=== PATIENT | female | born 1970 | race Caucasian/White ===

== ENCOUNTER → 2016-05-26 | Outpatient (CLI) | payer BC ==
[2016-05-28 17:47] LABS: ANTINUCLEAR ANTIBODY <0.1 U (())
[2016-05-28 17:51] LABS: CYCLIC CITRULLINATED PEPTIDEAB <15.6 U (())
== END ==
LOC: LAB 14:05
PROVIDERS: ATTEND Student in an Organized Health Care Education/Training Program
DX: M19.042 Primary osteoarthritis, left hand (principal); M19.041 Primary osteoarthritis, right hand
CPT/HCPCS: 36415; 84550; 85652; 86038; 86200; 86431

== ENCOUNTER → 2016-05-27 | Outpatient (CLI) | payer BC ==
[2016-05-27 10:31] LABS: BASOPHILS # (AUTO) 0.03 10*3/UL; BASOPHILS % (AUTO) 0.4 % (0-1); EOSINOPHILS % (AUTO) 1.4 % (0-8); HEMATOCRIT 36.7 % (37.0-47.0); HEMOGLOBIN 11.9 g/dL (12.0-16.0); IMM GRAN % (AUTO) 0 % (0-5); IMM GRAN# (AUTO) 0 10*3/UL; LYMPHOCYTES # (AUTO) 1.58 10*3/uL; LYMPHOCYTES % (AUTO) 21.7 % (10-50); MEAN CORPUSCULAR HEMOGLOBIN 28.2 PG (27-31); MEAN CORPUSCULAR HGB CONC 32.4 g/dL (33-37); MEAN PLATELET VOLUME 9.3 FL (7.4-12.2); MONOCYTES # (AUTO) 0.27 10*3/UL (0.3-0.8); MONOCYTES % (AUTO) 3.7 % (5-15); NEUTROPHILS # (AUTO) 5.31 10*3/UL; NEUTROPHILS % (AUTO) 72.8 % (50-80); RDW COEFFICIENT OF VARIATION 16.3 % (11.5-14.5); RED BLOOD COUNT 4.22 10^6/uL (4.20-5.40); WHITE BLOOD COUNT 7.29 10^3/uL (4.8-10.8)
[2016-05-27 10:43] LABS: PLATELET MORPHOLOGY COMMENT NORMAL MORPHOLOGY (NORM)
[2016-05-27 10:45] LABS: ASPARTATE AMINO TRANSFERASE 20 IU/L (8-39); BILIRUBIN,TOTAL 0.4 mg/dL (0.3-1.2); BLOOD UREA NITROGEN 7 mg/dL (7-22); CALCIUM 8.8 mg/dL (8.7-10.7); CHLORIDE 105 meq/L (98-112); CREATININE 0.7 mg/dL (0.50-1.20); EST GLOMERULAR FILTRATION > 60 (>60 ml/min/1.73m(2)); GLUCOSE 79 mg/dL (78-110); POTASSIUM 3.9 meq/L (3.8-5.2); SODIUM 139 meq/L (135-145); TOTAL PROTEIN 6.5 g/dL (6.1-8.0)
[2016-05-27 10:51] LABS: PROTHROMBIN TIME 10.1 secs (9.7-11.4)
== END ==
LOC: MOB LAB 10:00
PROVIDERS: ATTEND Physician Assistant
DX: N93.9 Abnormal uterine and vaginal bleeding, unspecified (principal); S30.814A Abrasion of vagina and vulva, initial encounter; Z90.710 Acquired absence of both cervix and uterus; F17.210 Nicotine dependence, cigarettes, uncomplicated
CPT/HCPCS: 36415; 80053; 85025; 85610; 85730; 87210

== ENCOUNTER 2016-05-28 11:37 | Emergency (ER) | payer BC ==
[2016-05-28 12:41] VITALS: RESP 18; TEMP 97.6
--- NOTE | 2016-05-28 15:48 | DI ---
RIGHT WRIST, 05/28/2016 11:53 AM: Clinical History: Right wrist pain. Previous Exam: None at this facility. 3 views are submitted. There is no acute soft tissue, osseous, or joint abnormality. Reading: Normal right wrist exam.
--- NOTE | 2016-05-28 16:12 | PDOC ---
Hand / Wrist Injury HPI - General Chief Complaint: Upper Extremity Problem/Injury Stated Complaint: arm pain Date Seen by Provider: 05/28/16 Time Seen by Provider: 11:50 Source: POSITIVE: Patient Exam Limitations: POSITIVE: No limitations Nurse's Notes Reviewed & Considered: Yes - History of Present Illness Initial Comments: The patient is a 46-year-old female who is evaluated with right wrist pain. She reports that for several months she has been having problems with increased pain and swelling primarily in the joints in her hand and fingers. For the past couple of weeks she has had increased pain in her right wrist mostly at the base of her thumb. She was seen in the clinic by Dr. Moody last week and had a bunch of blood work drawn to test for autoimmune arthritis. She states that 4 days ago she dropped a pain and of biscuits onto her right wrist which cause some increased pain. Today while at work she was lifting a dexter of biscuits when she had a sharp pain increased at the base of her right thumb in her wrist. She now has increased pain. She has been taking Tylenol for pain without relief. She is unable to take NSAIDs secondary to a history of gastric bypass surgery. She denies fevers or chills. She has not really had any pain or swelling in the joints in her lower extremity except her left knee from previous injury/surgery. She is scheduled to see Dr. Castillo on Monday of next week for her wrist problem. Have you received a tetanus shot in the past 10 years?: Yes - Patient Home Medications Home Medications: Home Medications Acetaminophen [Tylenol] 975 mg PO BID tab 03/31/16 Aspirin/Caffeine [Bc Arthritis Powder Packet] 1 each PO QD 03/31/16 JPM-Cyanocobalamin [Jpm - Vitamin B-12] 1,000 mcg IM MONTHLY #1 ml 04/08/16 Paroxetine HCl 40 mg PO DAILY #30 tab 05/26/16 Metronidazole [Flagyl] 500 mg PO BID #14 tab 05/27/16 Tramadol HCl [Ultram] 50 - 100 mg PO Q6H PRN #15 tab 05/28/16 - Patient Allergies Allergies/Adverse Reactions: Allergies Allergy/AdvReac Type Severity Reaction Status Date / Time Penicillins Allergy Anaphylaxis Verified 05/28/16 11:43 Past Medical History - heen HEENT History: Denies History Cardiovascular History: Denies History Respiratory History: Denies History Additional Respiratory History: CURRENTLY BEING TREATED FOR INFLUENZA A Gastrointestinal History: Other (please comment) Additional Gastrointestinal History: GASTRIC BYPASS 2007, Breast Reduction, Bilat carpal tunnel Genitourinary History: Denies History Endocrine History: Denies History Musculoskeletal History: Denies History, Other (please comment) Prosthesis or Implant: No Additional Musculoskeletal History: BILAT CARPAL TUNNEL SURGERIES Neurological History: Migraines, Other (please comment) Additional Neurological History: History of Migraines Blood Disorders: Denies History Psychiatric History: Depression History of Sexually Transmitted Diseases: No Female Reproductive History: Denies History Obstetrical History: Delivery Cancer History: Denies History In Past Year Been Physically Harmed or Verbally Threatened: No History of MDRO: No History of Other Communicable Diseases: No Tobacco Use: Current Every Day Smoker Alcohol Use: None Substance Use Type: None Previous Surgical History: Yes Type / Date of Surgery: GASTRIC BYPASS, FULL HYSTERECTOMY, BILATERAL CARPAL TUNNEL RELEASES, BILATERAL BREAST REDUCTION, CHOLECYSTECTOMY, C SECTION X 2/ BILAT OOPHORECTOMY, LEFT KNEE SCOPE WITH PARTIAL KNEE CAP REMOVAL Anesthesia Reactions: No Malignant Hyperthermia: No Significant Family History: Hypertension Past Medical History Reviewed: Reviewed - No Changes ROS - Limitations ROS Limitations: No Limitations (Review of systems otherwise noncontributory) Constitution: DENIES: Chills, Fever Hand / Wrist Injury Exam - General Appearance General Appearance: POSITIVE: Alert, Cooperative, No Acute Distress - Extremities Upper Extremity: POSITIVE: Other (examination of the right wrist reveals no obvious swelling or erythema to the right wrist, she does have tenderness to the dorsum of her wrist at the base of her thumb over the scaphoid region and over the extensor tendons for her thumb, she has limited flexion and extension at the wrist secondary to pain in this area, she has mild swelling to several of the joints in her fingers on both hands) Neurovascular / Tendon: POSITIVE: Sensation Normal, Motor Normal, No Vascular Compromise - HEENT HEENT: POSITIVE: Head Inspection Nml - Respiratory / CVS Respiratory / CVS: POSITIVE: Breath Sounds Normal, Heart Sounds Normal, Regular Rate/Rhythm Hand / Wrist Injury Progress - Results Reviewed by me Xrays/CTs/US Reviewed by me: Yes Discussed with Radiologist: Yes Radiology Findings: X-ray of the right wrist is negative for fracture or any other acute abnormality per radiologist. - Patient's Progress MDM / ED Course: The patient did have an arthritis panel drawn by her primary care provider last week. This was reviewed in the computer and thus far shows a normal sedimentation rate, normal uric acid, normal rheumatoid factor. Other tests I think are still pending. X-ray here shows no evidence of fracture or other acute injury. Her clinical presentation is most consistent with a tendinitis. She was placed in a thumb spica splint. She has an orthopedic follow-up on Monday which she was advised to keep. She does not tolerate oral anti- inflammatories secondary to her previous gastric bypass surgery. She was given Ultram as needed for pain which she can take in addition to Tylenol. She is advised return to the emergency room if she develops increased pain or swelling , fever, any worsening or change in symptoms. She will follow-up with her primary care provider once the remainder of her arthritis panel is available. Patient Care Time - Estimated PCT Patient Care Time (In Minutes): 20 Vital Signs - Recent Vital Signs Vital Signs: Vital Signs (Last 8 hours) Temp Pulse Resp BP Pulse Ox 05/28/16 11:49 97.6 F 72 18 133/88 99 - VS Reviewed Vital Signs Reviewed: Yes Discharge Clinical Impression: Wrist tendonitis Condition: Stable Prescriptions / Orders: Tramadol HCl [Ultram] 50 - 100 mg PO Q6H PRN #15 tab PRN Reason: Pain Patient Instructions Given at Discharge: Tendinitis (ED) Additional Instructions: The x-ray of the right wrist was negative for any obvious fracture. The blood work drawn per Dr. Moody so far has come back normal although some of this is still pending. Her symptoms are most consistent with a tendinitis at the base of your right thumb. You have been placed in a splint for immobilization to try to help with pain. Recommend that you keep your orthopedic follow-up appointment on Monday. You may be a candidate for a steroid injection since you cannot tolerate oral anti-inflammatories. You have been given a prescription for Ultram 50 mg which is a pain medication that you can take one or 2 every 6 hours as needed for pain. This can be taken in addition to Tylenol. Return to the emergency room if increased pain, increased swelling or fever, any worsening or change in symptoms. Follow Up With: SUSANNA MOODY [Primary Care Provider] -
== END 2016-05-28 12:34 | disposition home or self-care (01) ==
LOC: ER 11:37
DX: M25.531 Pain in right wrist (principal)
CPT/HCPCS: 73110; 99282

== ENCOUNTER → 2016-06-01 | Outpatient (CLI) | payer BC ==
--- NOTE | 2016-06-01 15:58 | DI ---
PA VIEWS OF BOTH WRISTS, 06/01/2016 3:06 PM: Clinical History: Right wrist pain. Left wrist for comparison. Previous Exam: 05/28/2016. "Clenched" fist PA views of both wrists is submitted. There is no acute soft tissue, osseous, or join t abnormality. There is widening of the distance between the scaphoid bone and the lunate bone on the right side compared to that of the left side. This is not as prominent as was seen on the PA project ion from the views of the right wrist dated 05/28/2016. The distraction between the scaphoid and lunat e bones was not identified on my previous dictation for 05/28/2016. Reading: There is widening between the right scaphoid and lunate bones suggesting a tear of the scapholunate l igament.
== END ==
LOC: ORTHO 15:15
PROVIDERS: ATTEND Orthopaedic Surgery
DX: M25.531 Pain in right wrist (principal); S63.521A Sprain of radiocarpal joint of right wrist, initial encounter; F17.210 Nicotine dependence, cigarettes, uncomplicated
CPT/HCPCS: 73100

== ENCOUNTER → 2016-06-08 | Outpatient (CLI) | payer BC ==
--- NOTE | 2016-06-08 15:00 | DI ---
MRI UP EXTREMITY JNT W/O CN,06/08/2016 1:47 PM: Clinical History: Right wrist pain. Previous Exam: X-ray of the wrist performed June 01, 2016 and May 28, 2016 Findings: Multiplanar MR images are obtained through the right wrist without contrast, and demonstrate anatomic alignment without fractures. There are cystic changes involving the proximal articular surfaces of t he hamate with its articulation with the lunate and triquetrum. There is some mild diastasis of the scapholunate interval. The scapholunate ligaments are at least pa rtially torn. The pisiform is unremarkable. The distal radial ulnar joint is unremarkable. There is a normal regular fibrocartilage complex. The ventral and dorsal radial attachments are intac t. The foveal and styloid attachments are also intact. The lunotriquetral joint is intact. The flexor and extensor tendons are intact as well. The major vascular flow voids are unremarkable. Impression: 1. Widening of the scapholunate interval most consistent with tears of the scapholunate ligaments. 2. 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
== END ==
LOC: MRI 13:42
PROVIDERS: ATTEND Orthopaedic Surgery
DX: M25.531 Pain in right wrist (principal); M94.231 Chondromalacia, right wrist
CPT/HCPCS: 73221

== ENCOUNTER → 2016-07-25 | Outpatient (CLI) | payer BC ==
[2016-07-25 16:28] LABS: HEMATOCRIT 38.4 % (37.0-47.0); HEMOGLOBIN 12.2 g/dL (12.0-16.0); MEAN CORPUSCULAR HEMOGLOBIN 26.8 PG (27-31); MEAN CORPUSCULAR HGB CONC 31.8 g/dL (33-37); MEAN CORPUSCULAR VOLUME 84.4 FL (81-99); MEAN PLATELET VOLUME 9.2 FL (7.4-12.2); RED BLOOD COUNT 4.55 10^6/uL (4.20-5.40)
[2016-07-25 16:55] LABS: URIC ACID 3.2 mg/dl (2.5-7.5)
[2016-07-25 16:59] LABS: C-REACTIVE PROTEIN < 0.5 mg/dL (0.0-0.9)
[2016-07-28 07:20] LABS: RHEUMATOID FACTOR <15 IU/mL (<15)
== END ==
LOC: LAB 16:09
PROVIDERS: ATTEND Orthopaedic Surgery Hand Surgery
DX: M25.532 Pain in left wrist (principal); M25.531 Pain in right wrist
CPT/HCPCS: 36415; 84550; 85027; 85652; 86038; 86140; 86431